=== PATIENT | female | born 1970 | race African-American/Black ===

== ENCOUNTER 2016-12-13 20:37 | Emergency (ER) | payer MEDICARE, OTHER ==
--- NOTE | ~2016-12-13 | CR282 ---
[facility] A Service of [facility] & [facility] RADIOLOGY TEXT RESULTS PATIENT: CARLI NORWOOD LOCATION: [facility] : 66 UNIT #: [id number] AGE: [address]: JAY ZHANG APRN SEX: F ORDER DR: [id number] [facility] [address] [place], [place] [address] [id number] E MR#: [id number] Acc #: [id number] NAME: CARLI NORWOOD. : 1970 SEX: F STUDY DATE/TIME: 12/13/2016 20:32 UNIT: [facility] ROOM: STUDY DESCRIPTION: CR Wrist Min 3 View Rt Attending Physician: Jay Zhang Aprn Ordering Physician: Jay Zhang Aprn Primary Care Physician: Primary Care Physician No MEDICAL IMAGING REPORT This report is preliminary unless electronic signature is present EXAM Right wrist, 3 views HISTORY Wrist pain after injury 2 weeks ago. FINDINGS 3 views of the right wrist demonstrate mild degenerative arthritis at the first CMC joint. Bone alignment is normal. No fracture or dislocation. 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 No acute finding. Dictated by... Gaurav Giron M.D. THIS IS AN ELECTRONICALLY VERIFIED REPORT Gaurav Giron M.D. at 12/14/2016 2:57 PM DFL/psc TD: 12/14/2016 01:59 JOB #: [id number] MEDICAL IMAGING REPORT Page 1 of 1 COPY
[~2016-12-13 20:37] MED LIST: FLAGYL PO; LITHIUM PO; TYLOX 5/500 CAP1 CAP PO; ULTRAM PO; ZYPREXA PO
== END 2016-12-13 22:12 | disposition home or self-care (01) ==
LOC: CFTX 20:37
DX: L72.8 Other follicular cysts of the skin and subcutaneous tissue (principal); J45.909 Unspecified asthma, uncomplicated; I10 Essential (primary) hypertension; F17.210 Nicotine dependence, cigarettes, uncomplicated; Z88.5 Allergy status to narcotic agent; Z91.040 Latex allergy status
CPT/HCPCS: 29125; 73110; 99283

== ENCOUNTER 2017-01-18 11:08 | Emergency (ER) | payer MEDICARE, OTHER ==
--- NOTE | ~2017-01-18 | CT2 ---
[facility] A Service of [facility] & [facility] RADIOLOGY TEXT RESULTS PATIENT: CARLI NORWOOD LOCATION: [facility] : [birth year] UNIT #: [id number] AGE: [address]: Ramesh Jackson MD SEX: F ORDER DR: [id number] [facility] [address] [place], [place] [address] [id number] E MR#: [id number] Acc #: [id number] NAME: CARLI NORWOOD. : 1970 SEX: F STUDY DATE/TIME: 01/18/2017 12:28 UNIT: [facility] ROOM: STUDY DESCRIPTION: CT Abd and Pelv W Cont Attending Physician: Ramesh Jackson M.D. Ordering Physician: Ramesh Jackson M.D. Primary Care Physician: Alonso Not Listed MEDICAL IMAGING REPORT This report is preliminary unless electronic signature is present EXAM CT abdomen and pelvis with contrast, 01/18/2017, 1228 hours. CLINICAL HISTORY 46-year-old woman with low back pain for 1 month, frequent urination, and right lower quadrant pain today. COMPARISON CT abdomen and pelvis, 03/23/2016. TECHNIQUE Dynamic helical CT images were obtained from the lung bases through the pubic symphysis with intravenous contrast only. Sagittal and coronal reconstructions were performed. Contrast was Isovue-370 100 mL IV. Total exam DLP 1094 mGy-cm. This CT exam was performed with one or more of the following radiation dose reduction techniques: automatic exposure control, adjustment of mA and/or kV according to patient size, and iterative reconstruction. FINDINGS Images through the lung bases are clear. There are no effusions. Images through the abdomen with contrast demonstrate mild low attenuation of the liver relative to the spleen which may indicate mild fatty infiltration. This is a stable finding. There is no focal liver lesion. The spleen, pancreas, gallbladder, bile ducts, and adrenal glands are normal. The kidneys are enhanced normally. There is no mass, stone, or dilatation. There is no ureterectasis or ureteral calculus. The bladder is normal. The stomach is contracted unopacified but appears within normal limits. There is no small bowel distension or small bowel wall thickening. The [facility] A Service of [facility] RADIOLOGY TEXT RESULTS PATIENT: CARLI NORWOOD LOCATION: [facility] : [birth year] UNIT #: [id number] AGE: [address]: Ramesh Jackson MD SEX: F ORDER DR: terminal ileum and appendix are normal. The patient has scattered colonic diverticula throughout the colon extending from the cecum to the sigmoid colon without colonic wall thickening or acute inflammation. CT pelvis demonstrates an anteverted uterus. There is no adnexal mass or pelvic free fluid. This is very small fat density periumbilical hernia with no bowel involvement. There is degenerative disc disease at L3-4 with vacuum phenomena. This appears similar to prior exam. IMPRESSION 1. No acute findings in the abdomen or pelvis. 2. The gallbladder, bile ducts, pancreas, and appendix are normal. 3. No renal or ureteral calculi. 4. Negative CT pelvis. 5. Scattered colonic diverticula extending from the cecum to the sigmoid colon without evidence of colonic wall thickening or acute inflammation. 6. Stable small fat density periumbilical hernia. 7. Stable disc height loss and vacuum phenomena at L3-4. Dictated by... Shayna Anton M.D. THIS IS AN ELECTRONICALLY VERIFIED REPORT Shayna Anton M.D. at 01/18/2017 5:58 PM Nathanael TD: 01/18/2017 15:06 JOB #: [id number] MEDICAL IMAGING REPORT Page 1 of 1 COPY
[2017-01-18 11:19] LABS: BASOPHIL# 0.1 X10e3 (0-0.3); BASOPHIL% 0.7 % (0-2.5); EOSINOPHIL# 0.3 X10e3 (0-0.7); EOSINOPHIL% 1.6 % (0.0-7.0); HEMATOCRIT 42.2 % (35.0-45.0); HEMOGLOBIN 13.3 gm/dL (12.0-16.0); LYMPHOCYTE# 2.9 X10e3 (1.0-3.5); LYMPHOCYTE% 14.5 % (17.0-45.0); MEAN CELL VOLUME 92.5 FL (83-96); MEAN CORPUSCULAR HEMOGLOBIN 29.1 PG (28-34); MEAN CORPUSCULAR HGB CONC 31.5 g/dL (30-36); MEAN PLATELET VOLUME 10.5 FL (6.5-11.5); MONOCYTE# 1.2 X10e3 (0-1.0); MONOCYTE% 5.8 % (3.0-12.0); NEUTROPHIL# 15.5 X10e3 (1.5-7.1); NEUTROPHIL% 77.4 % (40-75); RED BLOOD COUNT 4.57 X10e (3.90-5.30); RED CELL DISTRIBUTION WIDTH 13.7 % (11.0-15.5)
[2017-01-18 11:38] LABS: DIFF IND YES; PLATELET COUNT 229 X10e3 (140-420)
[2017-01-18 11:39] LABS: URINE SOURCE CLEAN CATCH
[2017-01-18 11:43] LABS: PLATELET ESTIMATE NORMAL (NORMAL)
[2017-01-18 11:45] LABS: RBC NORMAL YES
[2017-01-18 11:50] LABS: URINE APPEARANCE CLEAR; URINE BILIRUBIN NEG (NEG); URINE BLOOD NEG (NEG); URINE COLOR YELLOW; URINE GLUCOSE NEG (NEG); URINE KETONE NEG (NEG); URINE LEUKOCYTE ESTERASE NEG (NEG); URINE NITRATE NEG (NEG); URINE PH 6.5 (5-8); URINE PROTEIN NEG (NEG); URINE SPECIFIC GRAVITY 1.032 (1.003-1.035)
[2017-01-18 11:53] LABS: ALBUMIN SERUM 3.9 g/dL (3.5-5.0); BILIRUBIN, DIRECT 0.1 mg/dL (0.0-0.2); BILIRUBIN,INDIRECT 0.8 mg/dL (0.0-0.9); BILIRUBIN,TOTAL 0.9 mg/dL (0.2-2.0); BUN/CREATININE RATIO 15.71; CREATININE SERUM 0.7 mg/dL (0.6-1.4); GLOM FILT RATE Estimated 118.7 mL/min (>60); POTASSIUM 3.8 mmol/L (3.5-5.1); PROTEIN TOTAL SERUM 6.7 g/dL (6.0-8.3)
[2017-01-18 11:54] LABS: CULTURE INDICATED? NO
[2017-01-18 12:28] LABS: AMPHETAMINE NEG (NEG); BARBITURATES NEG (NEG); BENZODIAZEPINES NEG (NEG); COCAINE POS (NEG); MARIJUANA NEG (NEG); OPIATES NEG (NEG); TRICYCLIC ANTIDEPRESSANTS NEG (NEG); U METHADONE NEG (NEG)
[2017-01-21 09:12] LABS: CHLAMYDIA TRACH Not Detected (Not Detected); N GONOR Not Detected (Not Detected)
== END 2017-01-18 13:43 | disposition left against medical advice (07) ==
LOC: CED 11:08
PROVIDERS: Emergency Medicine
DX: F17.210 Nicotine dependence, cigarettes, uncomplicated (principal); R10.9 Unspecified abdominal pain; M54.9 Dorsalgia, unspecified; F14.10 Cocaine abuse, uncomplicated
CPT/HCPCS: 36415; 74177; 80048; 80076; 80307; 81003; 83605; 84703; 85025; 87491; 87591; 87808; 87905; 96361; 96374; 99284; J1885; Q9967

== ENCOUNTER 2017-01-28 08:14 | Emergency (ER) | payer MEDICARE, OTHER | END 2017-01-28 08:45 | disposition home or self-care (01) | LOC: CED 08:14 → CFTX 08:14 | DX: K08.89 Other specified disorders of teeth and supporting structures (principal); Z88.5 Allergy status to narcotic agent; Z91.040 Latex allergy status; F17.210 Nicotine dependence, cigarettes, uncomplicated | CPT/HCPCS: 99284 ==

== ENCOUNTER 2017-03-15 09:57 | Emergency (ER) | payer MEDICARE, OTHER | END 2017-03-15 12:22 | disposition left against medical advice (07) | LOC: CED 09:57 | DX: Z53.21 Procedure and treatment not carried out due to patient leaving prior to being seen by health care provider (principal) ==

== ENCOUNTER 2017-05-14 14:48 | Emergency (ER) | payer MEDICARE, OTHER ==
[~2017-05-14] VITALS: Ht 162.6 cm; Wt 95.2 kg
== END 2017-05-14 17:17 | disposition left against medical advice (07) ==
LOC: CED 14:48 → CFTX 17:17 → CED 17:17
DX: Z53.21 Procedure and treatment not carried out due to patient leaving prior to being seen by health care provider (principal)

== ENCOUNTER 2017-05-14 17:40 | Emergency (ER) | payer MEDICARE, OTHER ==
[~2017-05-14] VITALS: Ht 162.6 cm; Wt 95.2 kg
== END 2017-05-14 20:08 | disposition home or self-care (01) ==
LOC: CFTX 17:40 → CED 17:40 → CFTX 20:04
DX: J02.0 Streptococcal pharyngitis (principal); Z88.5 Allergy status to narcotic agent; Z91.040 Latex allergy status
CPT/HCPCS: 87880; 96372; 99283; J0561